=== PATIENT | female | born 1980 | race Two or more races ===

== ENCOUNTER 2024-08-28 09:22 | Outpatient (CLI) | payer OTHER | END 2024-08-28 09:43 | disposition home or self-care (01) | LOC: MAMO-SONO 09:22 | PROVIDERS: ATTEND General Practice | DX: N63 Unspecified lump in breast (principal); Z12.31 Encounter for screening mammogram for malignant neoplasm of breast; R10.9 Unspecified abdominal pain; K76.0 Fatty (change of) liver, not elsewhere classified; R22.1 Localized swelling, mass and lump, neck; R10.2 Pelvic and perineal pain; D25.9 Leiomyoma of uterus, unspecified; Z11.3 Encounter for screening for infections with a predominantly sexual mode of transmission; Z12.11 Encounter for screening for malignant neoplasm of colon; Z13.21 Encounter for screening for nutritional disorder; Z12.4 Encounter for screening for malignant neoplasm of cervix; Z13.0 Encounter for screening for diseases of the blood and blood-forming organs and certain disorders involving the immune mechanism; Z13.1 Encounter for screening for diabetes mellitus; Z13.220 Encounter for screening for lipoid disorders; Z13.29 Encounter for screening for other suspected endocrine disorder; Z32.00 Encounter for pregnancy test, result unknown; Z13.9 Encounter for screening, unspecified; N39.0 Urinary tract infection, site not specified ==